=== PATIENT | female | born 1995 | race Caucasian/White ===

== ENCOUNTER 2018-01-17 15:42 | Emergency (ER) | payer OTHER ==
[~2018-01-17] VITALS: Ht 162.6 cm; Wt 74.0 kg
[2018-01-17 16:04] LABS: HEMATOCRIT 36.5 % (36.0-46.0); HEMOGLOBIN 12.8 G/DL (11.9-15.5); MCHC 35.1 G/DL (30.0-36.0); MCV 91.3 FL (83-99); PLATELET COUNT 188 K/uL (156-360); RBC DIS.WIDTH-CV 11.8 % (11.8-14.6); RBC DIS.WIDTH-SD 39.1 % (39-53); WHITE BLOOD COUNT 8.6 K/uL (4.1-10.2)
[2018-01-17 16:15] LABS: ALBUMIN 4.4 g/dL (3.2-4.8); CHLORIDE 104 mEq/L (99-109); POTASSIUM 3.9 mEq/L (3.7-5.4); SODIUM 139 mEq/L (136-147)
[2018-01-17 16:17] LABS: GLUCOSE 95 mg/dL (70-99); TOTAL PROTEIN 7.2 g/dL (6.4-8.3)
[2018-01-17 16:19] LABS: TOTAL BILIRUBIN 0.8 mg/dL (0.0-1.0)
[2018-01-17 16:21] LABS: ALKALINE PHOSPHATASE 73 IU/L (3-129); CREATININE 0.7 mg/dL (0.6-1.3); GFR ESTIMATE (CALCULATED) > 59 mL/min/
[2018-01-17 16:22] LABS: UREA NITROGEN (BUN) 9 mg/dL (9-23)
[2018-01-17 16:23] LABS: AST (GOT) 10 IU/L (2-34)
[2018-01-17 16:24] LABS: ALT (GPT) 5 IU/L (3-49)
[2018-01-17 16:30] LABS: QUANTITATIVE HCG < 4.0 MIU/ML
[2018-01-17 16:59] LABS: LIPASE 2 U/L (1.0-51.0)
[2018-01-17 17:15] LABS: APPEARANCE SL.HAZY ((CLEAR)); BILIRUBIN NEGATIVE; BLOOD NEGATIVE; COLOR YELLOW ((YELLOW)); GLUCOSE (STRIP) NEGATIVE; KETONES 80; LEUKOCYTES NEGATIVE; NITRITE NEGATIVE; PROTEIN (STRIP) 30; SPECIFIC GRAVITY 1.026 (1.000-1.030); UROBILINOGEN 0.2 MG/DL (0.2-1.0)
[2018-01-17 17:28] LABS: BACTERIA RARE /HPF; EPITHELIAL CELLS RARE /HPF; MUCUS 2+ /LPF; RED BLOOD CELLS 0-5 /HPF (0-5); UCUL ADDED? NO; WHITE BLOOD CELLS 0-5 /HPF (0-5)
[2018-01-17] MEDS ORDERED: ZANTAC150 MG PO (19:29)
[2018-01-17 19:36] VITALS: BP 134/74
== END 2018-01-17 19:36 | disposition home or self-care (01) ==
LOC: EME 15:42
DX: R10.30 Lower abdominal pain, unspecified (principal); R10.13 Epigastric pain; D27.0 Benign neoplasm of right ovary
CPT/HCPCS: 74177; 76856; 80053; 81003; 83690; 84702; 85027; 99281; 99284; J7120